=== PATIENT | male | born 1990 | race Hispanic/Latino ===

== ENCOUNTER 2022-06-19 17:19 | Emergency (ER) | payer OTHER ==
[~2022-06-19] VITALS: Ht 182.9 cm; Wt 90.7 kg
[2022-06-19 17:28] VITALS: BP 176/114
== END 2022-06-19 18:22 | disposition left against medical advice (07) ==
LOC: EDH 17:19
DX: S91.052A Open bite, left ankle, initial encounter (principal); Z53.21 Procedure and treatment not carried out due to patient leaving prior to being seen by health care provider; W55.31XA Bitten by other hoof stock, initial encounter; Y93.9 Activity, unspecified; Y92.89 Other specified places as the place of occurrence of the external cause; Y99.8 Other external cause status
CPT/HCPCS: 73600; 73630